=== PATIENT | female | born 1960 | race Caucasian/White ===

== ENCOUNTER 2018-12-03 16:47 | Emergency (ER) | payer OTHER ==
--- NOTE | 2018-12-03 17:37 | UC ---
Respiratory Complaint HPI - HPI Summary HPI Summary: Pt is accompanied by adult female. Pt states that she can not breath or catch her breath, is nauseous, "shaky" and "jsut not feeling right". Pt had similar "episode" two weeks ago and was seen in [facility] and was also seen by PCP last week and pt states that "everything was fine". Pt was brought in by WC is diaphoretic and states that she can not "catch her breath" and is unable to take a "deep breath". Denies fever, states she "can not get warm", denies CP, abdominal pain urinary symptoms diarrhea or recent injury. 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 ?: No Onset/Duration: Gradual Onset - during the day today, Still Present Timing: Constant Severity Initially: Mild Severity Currently: Severe Pain Intensity: 0 Aggravating Factors: Exertion Alleviating Factors: Nothing Associated Signs And Symptoms: Positive: Chills - Risk Factors Pulmonary Embolism Risk Factors: Negative Cardiac Risk Factors: Negative Pseudomonas Risk Factors: Negative Tuberculosis Risk Factors: Negative - Allergies/Home Medications Allergies/Adverse Reactions: Allergies Allergy/AdvReac Type Severity Reaction Status Date / Time No Known Allergies Allergy Verified 03/05/15 16:46 Home Medications: Home Medications Levothyroxine Sodium 100 mcg PO DAILY 12/03/18 [History Confirmed 12/03/18] PMH/Surg Hx/FS Hx/Imm Hx Previously Healthy: Yes Endocrine History: Hypothyroidism - Surgical History Surgical History: Yes Surgery Procedure, Year, and Place: FOOT SURGERY. SEGMENTAL MASTECTOMY FOR BREAST - Family History Known Family History: Positive: Cardiac Disease - Social History Occupation: Retired Lives: With Family Alcohol Use: None Substance Use Type: None Smoking Status (MU): Former Smoker Type: Cigarettes Have You Smoked in the Last Year: No - Immunization History Vaccination Up to Date: Yes Review of Systems All Other Systems Reviewed And Are Negative: Yes Constitutional: Positive: Chills, Fatigue, Other - diaphoretic Skin: Positive: Negative Eyes: Positive: Negative ENT: Positive: Negative Respiratory: Positive: Shortness Of Breath Cardiovascular: Positive: Negative Gastrointestinal: Positive: Nausea Genitourinary: Positive: Negative Motor: Positive: Negative Neurovascular: Positive: Negative Musculoskeletal: Positive: Negative Neurological: Positive: Negative Psychological: Positive: Negative Is Patient Immunocompromised?: No Physical Exam Triage Information Reviewed: Yes Appearance: Pain Distress, Other: - diaphoretic, color is pink and speaking in full sentences. Vital Signs: Initial Vital Signs Temp 97.3 F 12/03/18 16:48 Pulse 84 12/03/18 16:48 Resp 16 12/03/18 16:48 BP 151/76 12/03/18 16:48 Pulse Ox 100 12/03/18 16:48 Vital Signs Reviewed: Yes Eye Exam: Normal ENT: Positive: Normal ENT inspection, Hearing grossly normal Dental Exam: Normal Neck exam: Normal Respiratory Exam: Normal Respiratory: Positive: Chest non-tender, Lungs clear, Normal breath sounds Cardiovascular Exam: Normal Musculoskeletal Exam: Normal Neurological Exam: Normal Psychological Exam: Normal Skin Exam: Normal - pink, moist and pt is diaphoretic. She has sweat pant snad sweatshirt and blanket wrapped around her. Respiratory Course/Dx - Course Course Of Treatment: I discussed the need for further evaluation and testing at the closest emergency room and to be transferred by ambulance. Pt verbalized understanding and agreed to plan of care. - Differential Dx/Diagnosis Differential Diagnosis/HQI/PQRI: Other - anxiety Provider Diagnosis: Diaphoresis - Physician Notification/Consults Discussed Patient Care With: paz yu - accepted pt for transfer Time Discussed With Above Provider: 17:35 Discharge - Sign-Out/Discharge Documenting (check all that apply): Patient Departure All imaging exams completed and their final reports reviewed: No Studies - Discharge Plan Condition: Stable Disposition: TRANS HIGHER LVL OF CARE FAC Patient Education Materials: Anxiety (ED), Shortness of Breath (ED) Referrals: Roberta Beck MD [Primary Care Provider] - - Billing Disposition and Condition Condition: STABLE Disposition: Trans Higher Lvl of Care Fac - Attestation Statements Provider Attestation: Per institutional requirements, I have reviewed the chart, however, I was not consulted specifically or made aware of this patient by the midlevel provider. I did not personally evaluate, interact with , or disposition this patient.
[2018-12-03 17:46] VITALS: BP 140/110
== END 2018-12-03 17:45 | disposition short-term general hospital (02) ==
LOC: UCCORT 16:47
DX: R61 Generalized hyperhidrosis (principal); E03.9 Hypothyroidism, unspecified; Z87.891 Personal history of nicotine dependence
CPT/HCPCS: 93005; 99203; G0463

== ENCOUNTER 2019-07-22 17:24 | Emergency (ER) | payer OTHER ==
[2019-07-22 18:27] LABS: ABS Basophils 0.1 10^3/ul (0-0.2); ABS Lymphocytes 3.6 10^3/ul (1.0-4.8); ABS Monocytes 0.9 10^3/ul (0-0.8); Eosinophil % 0.3 %; Hematocrit 48 % (35-47); Hemoglobin 16.6 g/dL (12.0-16.0); Lymphocyte % 37.5 %; Mean Corpuscular HGB Conc 35 g/dL (31-36); Mean Corpuscular Hemoglobin 32 pg (27-31); Mean Corpuscular Volume 91 fL (80-97); Mean Platelet Volume 8.4 fL (7.4-10.4); Nucleated Red Blood Cells % 0.1; Platelet Count 266 10^3/uL (150-450); Red Cell Distribution Width 14 % (10-15); White Blood Count 9.6 10^3/uL (3.5-10.8)
[2019-07-22 18:47] LABS: Albumin 4.7 g/dL (3.2-5.2); Albumin/Globulin Ratio 1.6 (1-3); BUN/Creatinine Ratio 17.6 (8-20); C Reactive Protein 1.04 mg/L (<8.01); Calcium 10.4 mg/dL (8.6-10.3); EGFR African American 56.4 (>60); EGFR Non-African American 46.6 (>60); Magnesium 2.2 mg/dL (1.9-2.7); Potassium 3.2 mmol/L (3.5-5.0); Total Bilirubin 0.8 mg/dL (0.2-1.0); Total Protein 7.7 g/dL (6.4-8.9)
[2019-07-22] MEDS ORDERED: Ondansetron INJ* 2 MG/ML VIAL IV ONE (19:38)
[2019-07-22] MEDS ORDERED: NS 0.9% 1000 ML** 1,000 ML IV ONE ×2 (19:38→20:21)
[2019-07-22 19:58] LABS: Urine Appearance Turbid; Urine Bilirubin 1+ (Negative); Urine Blood Negative (Negative); Urine Color Amber; Urine Glucose Negative (Negative); Urine Ketones Negative (Negative); Urine Nitrite Negative (Negative); Urine Protein 2+(100 mg/dL) (Negative); Urine Specific Gravity 1.027 (1.010-1.030); Urine Urobilinogen Negative (Negative)
[2019-07-22 20:04] LABS: Urine Bacteria Absent (Absent); Urine Red Blood Cell Absent (Absent); Urine Squamous Epithelial Cell Present (Absent); Urine White Blood Cell 2+(11-20/hpf) (Absent)
--- NOTE | 2019-07-22 20:47 | ED ---
GI/ HPI - HPI Summary HPI Summary: The patient is a 58-year-old female presenting to [facility] with a chief complaint of incessant nausea and vomiting onset three days ago. She reports that this is the third or fourth time she has experienced these symptoms within the last year with negative workup thus far, although she has not had any imaging or seen GI. She visited her PCP today for the extreme nausea and vomiting she has been experiencing, as well as chills, diaphoresis, and abdominal soreness. She was referred to come here. She denies any fevers or diarrhea. Symptoms rated 2/ 10 in severity. PMHx: hypothyroidism, depression, breast cancer with mastectomy , pelvic infection surgery, pilonidal cyst, colposcopy, knee surgery. Former smoker, no EtOH, marijuana use (states none recently). Medications reviewed. Allergies noted. - History of Current Complaint Chief Complaint: EDNauseaVomitDiarrh Time Seen by Provider: 07/22/19 19:44 Stated Complaint: NAUSEA PER PT Hx Obtained From: Patient Onset/Duration: Started Days Ago - three, Still Present Timing: Constant Severity: Moderate Current Severity: Mild Pain Intensity: 2 Location of Pain: Diffuse - soreness Associated Signs and Symptoms: Positive: Nausea, Vomiting, Chills, Abdominal Pain, Other: - diaphoresis; Negative: chills. Negative: Diarrhea, Fever Aggravating Factor(s): Nothing Alleviating Factor(s): Nothing - Allergy/Home Medications Allergies/Adverse Reactions: Allergies Allergy/AdvReac Type Severity Reaction Status Date / Time No Known Allergies Allergy Verified 07/22/19 17:44 PMH/Surg Hx/FS Hx/Imm Hx Endocrine/Hematology History: Reports: Hx Thyroid Disease - hypo GI History: Reports: Hx Ulcer - A TEEN Psychiatric History: Reports: Hx Depression - Cancer History Cancer Type, Location and Year: BREAST CA 1999 - Surgical History Surgical History: Yes Surgery Procedure, Year, and Place: FOOT SURGERY. SEGMENTAL MASTECTOMY FOR BREAST. pilonidal cyst, colposcopy, knee surgery Infectious Disease History: Yes Infectious Disease History: Reports: Hx Hepatitis - HEP A Denies: Traveled Outside the [place] in Last 30 Days - Family History Known Family History: Positive: Cardiac Disease - father, Other - cancer, stroke - Social History Alcohol Use: None Hx Substance Use: Yes Substance Use Type: Reports: Marijuana Substance Use Comment - Amount & Last Used: every other day Hx Tobacco Use: Yes Smoking Status (MU): Former Smoker Type: Cigarettes Have You Smoked in the Last Year: No - Additional Comments History Additional Comments: hypothyroidism, depression, breast cancer with mastectomy, pelvic infection surgery Review of Systems - ROS Summary Review of Systems Summary: Home Medications Medication Instructions Recorded Confirmed Type Acetaminophen TAB* [Tylenol TAB*] 650 mg PO Q4H PRN 03/05/15 07/22/19 History Venlafaxine EXT RELEASE CAP* 75 mg PO DAILY 03/05/15 07/22/19 History [Effexor Xr CAP*] Levothyroxine Sodium 100 mcg PO DAILY 12/03/18 07/22/19 History Positive: Chills, Skin Diaphoresis. Negative: Fever Positive: Abdominal Pain, Vomiting, Nausea. Negative: Diarrhea All Other Systems Reviewed And Are Negative: Yes Physical Exam - Summary Physical Exam Summary: General: Well-developed, Well-nourished female. Appears to be in moderate discomfort. HEENT: Normocephalic, Atraumatic. Eyes: Conjuctiva normal, PERRL. Oropharynx: Clear, mucous membranes moist, (-) exudates. Neck: Soft, FROM, (-) lymphadenopathy, (-) thyromegaly, (-) JVD. Cardiovascular: Normal sinus rhythm, (-) murmur. Lungs: Clear to auscultation bilaterally (-) wheezes, (-) rales, (-) rhonchi. Abdomen: Soft, non-tender, non-distended, (-) organomegaly, normal bowel sounds. Back: (-) CVA tenderness Extremities: No edema. Skin: Warm, dry, (-) rash. Neuro: Alert and oriented x3, moves all extremities equally. No ataxia. No gait disturbance. No sensory deficit. Normal strength, normal sensation. Psychiatric: Mood tearful at times, affect normal. Triage Information Reviewed: Yes Vital Signs On Initial Exam: Initial Vitals Temp Pulse Resp BP Pulse Ox 97.4 F 84 18 99/74 99 07/22/19 17:38 07/22/19 17:38 07/22/19 17:38 07/22/19 17:38 07/22/19 17:38 Vital Signs Reviewed: Yes Procedures - Sedation Patient Received Moderate/Deep Sedation with Procedure: No Diagnostics - Vital Signs Vital Signs Temp Pulse Resp BP Pulse Ox 07/22/19 20:00 63 96 07/22/19 19:48 75 93/54 96 07/22/19 19:47 69 97 07/22/19 17:38 97.4 F 84 18 99/74 99 - Laboratory Lab Results: Lab Results 07/22/19 07/22/19 07/22/19 Range/Units 18:16 18:16 18:16 WBC 9.6 (3.5-10.8) 10^3/uL RBC 5.20 H (3.70-4.87) 10^6 /uL Hgb 16.6 H (12.0-16.0) g/dL Hct 48 H (35-47) % MCV 91 (80-97) fL MCH 32 H (27-31) pg MCHC 35 (31-36) g/dL RDW 14 (10-15) % Plt Count 266 (150-450) 10^3/uL MPV 8.4 (7.4-10.4) fL Neut % (Auto) 52.4 % Lymph % (Auto) 37.5 % [place] % (Auto) 9.2 % Eos % (Auto) 0.3 % Baso % (Auto) 0.6 % Absolute Neuts (auto) 5.0 (1.5-7.7) 10^3/ul Absolute Lymphs (auto) 3.6 (1.0-4.8) 10^3/ul Absolute Monos (auto) 0.9 H (0-0.8) 10^3/ul Absolute Eos (auto) 0.0 (0-0.6) 10^3/ul Absolute Basos (auto) 0.1 (0-0.2) 10^3/ul Absolute Nucleated RBC 0.0 10^3/ul Nucleated RBC % 0.1 Sodium 137 (135-145) mmol/L Potassium 3.2 L (3.5-5.0) mmol/L Chloride 99 L (101-111) mmol/L Carbon Dioxide 28 (22-32) mmol/L Anion Gap 10 (2-11) mmol/L BUN 21 (6-24) mg/dL Creatinine 1.19 H (0.51-0.95) mg/dL Est GFR ( Amer) 56.4 (>60) Est GFR (Non-Af Amer) 46.6 (>60) BUN/Creatinine Ratio 17.6 (8-20) Glucose 102 H (70-100) mg/dL Lactic Acid 1.5 (0.5-2.0) mmol/L Calcium 10.4 H (8.6-10.3) mg/dL Magnesium 2.2 (1.9-2.7) mg/dL Total Bilirubin 0.80 (0.2-1.0) mg/dL AST 16 (13-39) U/L ALT 14 (7-52) U/L Alkaline Phosphatase 72 (34-104) U/L C-Reactive Protein 1.04 (<8.01) mg/L Total Protein 7.7 (6.4-8.9) g/dL Albumin 4.7 (3.2-5.2) g/dL Globulin 3.0 (2-4) g/dL Albumin/Globulin Ratio 1.6 (1-3) Lipase 73 (11.0-82.0) U/L Urine Color Urine Appearance Urine pH (5-9) Ur Specific [place] (1.010-1.030) Urine Protein (Negative) Urine Ketones (Negative) Urine Blood (Negative) Urine Nitrate (Negative) Urine Bilirubin (Negative) Urine Urobilinogen (Negative) Ur Leukocyte Esterase (Negative) Urine WBC (Auto) (Absent) Urine RBC (Auto) (Absent) Ur Squamous Epith Cells (Absent) Urine Bacteria (Absent) Hyaline Casts (Absent) Urine Glucose (Negative) Urine Ascorbic Acid (Negative) 07/22/19 Range/Units 19:35 WBC (3.5-10.8) 10^3/uL RBC (3.70-4.87) 10^6 /uL Hgb (12.0-16.0) g/dL Hct (35-47) % MCV (80-97) fL MCH (27-31) pg MCHC (31-36) g/dL RDW (10-15) % Plt Count (150-450) 10^3/uL MPV (7.4-10.4) fL Neut % (Auto) % Lymph % (Auto) % [place] % (Auto) % Eos % (Auto) % Baso % (Auto) % Absolute Neuts (auto) (1.5-7.7) 10^3/ul Absolute Lymphs (auto) (1.0-4.8) 10^3/ul Absolute Monos (auto) (0-0.8) 10^3/ul Absolute Eos (auto) (0-0.6) 10^3/ul Absolute Basos (auto) (0-0.2) 10^3/ul Absolute Nucleated RBC 10^3/ul Nucleated RBC % Sodium (135-145) mmol/L Potassium (3.5-5.0) mmol/L Chloride (101-111) mmol/L Carbon Dioxide (22-32) mmol/L Anion Gap (2-11) mmol/L BUN (6-24) mg/dL Creatinine (0.51-0.95) mg/dL Est GFR ( Amer) (>60) Est GFR (Non-Af Amer) (>60) BUN/Creatinine Ratio (8-20) Glucose (70-100) mg/dL Lactic Acid (0.5-2.0) mmol/L Calcium (8.6-10.3) mg/dL Magnesium (1.9-2.7) mg/dL Total Bilirubin (0.2-1.0) mg/dL AST (13-39) U/L ALT (7-52) U/L Alkaline Phosphatase (34-104) U/L C-Reactive Protein (<8.01) mg/L Total Protein (6.4-8.9) g/dL Albumin (3.2-5.2) g/dL Globulin (2-4) g/dL Albumin/Globulin Ratio (1-3) Lipase (11.0-82.0) U/L Urine Color Tana Urine Appearance Turbid Urine pH 5.0 (5-9) Ur Specific [place] 1.027 (1.010-1.030) Urine Protein 2+(100 mg/dl) A (Negative) Urine Ketones Negative (Negative) Urine Blood Negative (Negative) Urine Nitrate Negative (Negative) Urine Bilirubin 1+ A (Negative) Urine Urobilinogen Negative (Negative) Ur Leukocyte Esterase 2+ A (Negative) Urine WBC (Auto) 2+(11-20/hpf) A (Absent) Urine RBC (Auto) Absent (Absent) Ur Squamous Epith Cells Present A (Absent) Urine Bacteria Absent (Absent) Hyaline Casts Present A (Absent) Urine Glucose Negative (Negative) Urine Ascorbic Acid * A (Negative) Result Diagrams: 07/22/19 18:16 07/22/19 18:16 Lab Statement: Any lab studies that have been ordered have been reviewed, and results considered in the medical decision making process. - CT Abd/Pel CT CT Interpretation Completed By: Radiologist Summary of CT Findings: Impression: 1. There are multiple indeterminate low- attenuation lesions in the spleen which do not appear to be consistent with simple cysts, the largest measuring a maximum of 10 mm. For patients without or with history of cancer, recommend follow-up MR in 6-12 months. 2. There is colonic diverticulosis without evidence for acute diverticulitis. 3. There are likely calcified uterine fibroids. 4. There is nonobstructive left nephrolithiasis. ED physician has reviewed this report. Re-Evaluation - Re-Evaluation First Eval Re-Evaluation Time: 21:00 Change: Improved Comment: Nausea resolved with Zofran Second Eval Re-Evaluation Time: 23:05 Change: Improved Comment: I have discussed results with the patient and nausea is resolved. Discussed symptoms that warrant immediate return to ED. GIGU Course/Dx - Course Course Of Treatment: 58-year-old female presenting with vomiting and abdominal pain. Patient states she has not been able to stop vomiting for 2 days. She states this is not the first time this is happened. Has happened at least 2 or 3 other times. She states oblique and figure out what is wrong with her. Has seen her doctor and been given Zofran. Did not help. She states she has severe chills. Then will have cold sweats. No diarrhea. No urinary complaints. On physical exam she is not ill-appearing. Mild epigastric tenderness. Workup demonstrates slightly low potassium which is replaced with IV potassium. Normal white count. Normal LFTs. Urine positive for marijuana. CT abdomen and pelvis essentially normal except for lesions in spleen. advised patient of these and recommend follow up with PCP. Discussed the possibility the patient has cyclical vomiting due to marijuana use. Advised her to follow-up with her PCP and stop marijuana use. Follow-up sooner for any worsening symptoms. - Diagnoses Provider Diagnoses: Cyclic vomiting syndrome, Lesion of spleen Discharge ED - Sign-Out/Discharge Documenting (check all that apply): Patient Departure - Patient will be discharged home. - Discharge Plan Condition: Stable Disposition: HOME Patient Education Materials: Cannabis Abuse (ED), Cyclic Vomiting Syndrome (ED) Referrals: Roberta Beck MD [Primary Care Provider] - 3 Days Additional Instructions: You have been seen today for vomiting and abnormal CT findings of the spleen. You should consider cessation of marijuana use, as it is possibly linked to the vomiting you are experiencing. Please follow up with your primary care provider in 2-3 days. Return to the emergency department for any new or worsening symptoms. - Billing Disposition and Condition Condition: STABLE Disposition: Home - Attestation Statements Document Initiated by Rivera: Yes Documenting Scribe: Chani Loo Provider For Whom Rivera is Documenting (Include Credential): Dr. Matilde Crow MD Scribe Attestation: IChani scribed for Dr. Matilde Crow MD on 07/23/19 at 0012. Scribe Documentation Reviewed: Yes Provider Attestation: The documentation as recorded by the Chani chamorro accurately reflects the service I personally performed and the decisions made by me, Dr. Matilde Crow MD Status of Scribe Document: Viewed
[2019-07-22] MEDS ORDERED: KCL 10 MEQ/50 ML IVPREMIX* 10 MEQ/50 ML BAG IV ONE (20:56)
[2019-07-22] MEDS ORDERED: Iodixanol* (CONTRAST) 320 MG/ML 100 ML SDV IV ONE (21:06)
[2019-07-22 22:53] LABS: Urine Benzodiazepine Screen None Detected (None Detect); Urine Opiates Screen None Detected (None Detect)
[2019-07-22] MEDS ORDERED: Acetaminophen TAB* 325 MG PO PRN (23:06)
[2019-07-22 23:32] VITALS: BP 106/66
[2019-07-23] MEDS ORDERED: Levothyroxine TAB* 100 MCG TAB PO SCH (09:00)
[2019-07-23] MEDS ORDERED: Venlafaxine EXT RELEASE CAP* 75 MG PO SCH (09:00)
== END 2019-07-22 23:32 | disposition home or self-care (01) ==
LOC: ED 17:24
DX: R11.15 Cyclical vomiting syndrome unrelated to migraine (principal); D73.89 Other diseases of spleen; R10.9 Unspecified abdominal pain; Z87.891 Personal history of nicotine dependence; E03.9 Hypothyroidism, unspecified; F32.9 Major depressive disorder, single episode, unspecified; Z85.3 Personal history of malignant neoplasm of breast; Z79.890 Hormone replacement therapy
CPT/HCPCS: 36415; 74177; 80053; 80307; 81003; 81015; 83605; 83690; 83735; 85025; 86140; 87086; 96361; 96365; 96375; 99283; G0480; J2405; J3480; Q9967